=== PATIENT | female | born 1955 | race African-American/Black ===

== ENCOUNTER 2022-03-12 12:22 | Inpatient (IN) | payer OTHER, MEDICAID ==
[~2022-03-12] VITALS: Ht 170.2 cm; Wt 84.8 kg
[2022-03-12] MEDS ORDERED: SODIUM CHLORIDE 0.9% 500 ML IV ONE (13:15)
[2022-03-12 14:35] LABS: BASOPHILS % 0.4 % (0.0-2.0); EOSINOPHILS % 0.2 % (0.0-5.0); HEMATOCRIT. 43.3 % (36.0-48.0); HEMOGLOBIN. 14.5 g/dL (12.0-16.0); LYMPHOCYTES % 10.4 % (20.0-50.0); MEAN CORPUSCULAR HEMOGLOBIN 34.5 pg (28.0-32.0); MEAN CORPUSCULAR VOLUME 102.8 fL (81.0-99.0); MEAN PLATELET VOLUME 7.8 fl (7.4-10.4); MONOCYTES % 3.6 % (2.0-8.0); NEUTROPHILS % 85.4 % (40.0-76.0); PLATELET 632 x1000/uL (130-400); RED BLOOD CELL COUNT 4.21 mill/uL (4.2-5.4); RED CELL DISTRIBUTION WIDTH 14.9 % (11.6-14.6)
[2022-03-12 14:42] LABS: CHLORIDE 103 mEq/L (98-107)
[2022-03-12] MEDS ORDERED: AZITHROMYCIN 500MG/250ML 250 ML IV ONE (14:45)
[2022-03-12] MEDS ORDERED: CEFTRIAXONE 1 G PREMIX 50 ML IV ONE (14:45)
[2022-03-12 14:54] LABS: ETHANOL BLOOD < 10 mg/dL
[2022-03-12] MEDS ORDERED: POTASSIUM CHLORIDE 20MEQ/PACKET PO NR (15:30)
[2022-03-12] MEDS ORDERED: NITROGLYCERIN 0.4MG TABLET SL SL PRN (16:00)
[2022-03-12] MEDS ORDERED: ZOLPIDEM TARTRATE 5MG TABLET PO PRN (16:00)
[2022-03-12] MEDS ORDERED: ONDANSETRON HCL 4MG/2ML INJ IV PRN (16:00)
[2022-03-12] MEDS ORDERED: ACETAMINOPHEN 325MG TABLET PO PRN ×2 (16:00)
[2022-03-12] MEDS ORDERED: MAGNESIUM/ALUMINUM HYDROXIDE/SIMETHICONE 30ML UDC PO PRN (16:00)
[2022-03-12] MEDS ORDERED: DOCUSATE SODIUM 100MG CAPSULE PO PRN (16:00)
[2022-03-12] MEDS ORDERED: GUAIFENESIN 200MG/10ML SUGAR FREE UDC PO PRN (16:00)
[2022-03-12] MEDS ORDERED: IPRATROPIUM/ALBUTEROL 0.5-3(2.5)MG/3ML NEB NEB PRN (16:00)
[2022-03-12] MEDS ORDERED: CLONIDINE 0.1MG TABLET PO PRN (16:00)
[2022-03-12] MEDS ORDERED: KETOROLAC 15MG/ML VIAL IV PRN (16:00)
[2022-03-12] MEDS ORDERED: CEFTRIAXONE 1 G PREMIX 50 ML IV NR (16:15)
[2022-03-12] MEDS ORDERED: AZITHROMYCIN 500MG/250ML 250 ML IV NR (16:15)
[2022-03-12 16:37] LABS: T4 FREE 1.11 ng/dL (0.76-1.46)
[2022-03-12 17:05] LABS: VITAMIN B12 SERUM 619 pg/mL (211-911)
[2022-03-12] MEDS ORDERED: FOLIC ACID 1 MG, THIAMINE HCL 100 MG, MVI, ADULT NO.1 10 ML in DEXTROSE 5% WATER 1,000 ML IV ONE ×4 (19:30)
[2022-03-12 20:00] VITALS: BP 142/76
[2022-03-12] MEDS ORDERED: ENOXAPARIN 40MG/0.4ML SYR SUBCUT SCH (21:00)
[2022-03-12 21:30] LABS: CREATINE KINASE MB FRACTION 1.3 ng/mL (0.5-3.6)
[2022-03-12] MEDS: FAMOTIDINE 20MG TABLET PO SCH (23:00)
[2022-03-12] MEDS: ASCORBIC ACID 500 MG TABLET PO SCH (23:00)
[2022-03-13] VITALS (8 sets, daily range): BP systolic 120–143; BP diastolic 71–86
[2022-03-13 00:29] LABS: CLARITY URINE CLEAR (CLEAR); COLOR URINE DARK YELLOW (YELLOW); KETONES URINE 2+ (NEGATIVE); LEUKOCYTE ESTERASE URINE TRACE (NEGATIVE); NITRITE URINE NEGATIVE (NEGATIVE); OCCULT BLOOD URINE NEGATIVE (NEGATIVE); PROTEIN URINE 1+ (NEGATIVE); SPECIFIC GRAVITY URINE 1.033 (1.005-1.030); UROBILINOGEN URINE >8.0 E.U./dL (0.2-1.0)
[2022-03-13 00:56] LABS: *AMPHETAMINES SCREEN URINE NEGATIVE (NEGATIVE); *BARBITURATES SCREEN URINE NEGATIVE (NEGATIVE); *BENZODIAZEPINES SCREEN URINE NEGATIVE (NEGATIVE); *COCAINE SCREEN URINE NEGATIVE (NEGATIVE); CANNABINOID URINE SCREEN NEGATIVE (NEGATIVE); METHADONE URINE SCREEN NEGATIVE (NEGATIVE); OPIATES URINE SCREEN NEGATIVE (NEGATIVE); PHENCYCLIDINE URINE SCREEN NEGATIVE (NEGATIVE)
[2022-03-13 06:57] LABS: BASOPHILS % 0.5 % (0.0-2.0); EOSINOPHILS % 0.8 % (0.0-5.0); HEMOGLOBIN. 13.3 g/dL (12.0-16.0); MEAN CORPUSCULAR HEMOGLOBIN 34.4 pg (28.0-32.0); MONOCYTES % 3.1 % (2.0-8.0); NEUTROPHILS % 82.6 % (40.0-76.0); PLATELET 610 x1000/uL (130-400); RED BLOOD CELL COUNT 3.88 mill/uL (4.2-5.4); RED CELL DISTRIBUTION WIDTH 14.9 % (11.6-14.6)
[2022-03-13 07:08] LABS: CREATINE KINASE MB FRACTION 1.1 ng/mL (0.5-3.6)
[2022-03-13] MEDS: GUAIFENESIN/DM 600MG/30MG ER TAB 12HR PO SCH ×2 (07:26→15:23)
[2022-03-13] MEDS: ZINC SULFATE 220 MG ( 50 ) CAPSULE PO SCH (08:53)
[2022-03-13] MEDS: ASCORBIC ACID 500 MG TABLET PO SCH ×2 (08:53→20:46)
[2022-03-13] MEDS: AMLODIPINE 5MG TABLET PO SCH (08:53)
[2022-03-13] MEDS: FAMOTIDINE 20MG TABLET PO SCH ×2 (08:53→20:46)
[2022-03-13] MEDS ORDERED: ASPIRIN 325MG EC TABLET PO SCH (09:00)
[2022-03-13] MEDS ORDERED: CEFTRIAXONE 1 G PREMIX 50 ML IV SCH (09:00)
[2022-03-13] MEDS: ASPIRIN 325MG EC TABLET PO SCH (09:15)
[2022-03-13] MEDS ORDERED: FUROSEMIDE 40MG/4ML VIAL IVP SCH (09:15)
[2022-03-13] MEDS: SPIRONOLACTONE 25MG TABLET PO SCH (09:20)
[2022-03-13] MEDS ORDERED: SODIUM CHLORIDE 3% FOR INH 4ML UD NEB INH NR (11:00)
[2022-03-13 11:24] LABS: CHLORIDE 106 mEq/L (98-107)
[2022-03-13] MEDS ORDERED: POTASSIUM CHLORIDE 20MEQ TABLET SR PO SCH (13:15)
[2022-03-13] MEDS ORDERED: POTASSIUM CHLORIDE 20MEQ/PACKET PO SCH (13:15)
[2022-03-13 13:42] LABS: PHOSPHORUS 2.2 mg/dL (2.5-4.9)
[2022-03-13] MEDS: IPRATROPIUM/ALBUTEROL 0.5-3(2.5)MG/3ML NEB HHN SCH ×2 (15:42→21:40)
[2022-03-13] MEDS ORDERED: AZITHROMYCIN 500 MG in DEXT 5% WATER 250 ML IV SCH (16:00)
[2022-03-13] MEDS: CEFTRIAXONE 1,000 MG in DEXTROSE 5% WATER 50 ML IV SCH (16:58)
[2022-03-13] MEDS: ATORVASTATIN CALCIUM 40MG TABLET PO SCH (20:46)
[2022-03-13] MEDS: AZITHROMYCIN 500 MG in DEXT 5% WATER 250 ML IV SCH (21:13)
[2022-03-14] VITALS: BP 124/78
[2022-03-14] MEDS: ACETYLCYSTEINE 200MG/ML 20% VIAL 4ML INH SCH ×3 (00:37→14:06)
[2022-03-14] MEDS: GUAIFENESIN/DM 600MG/30MG ER TAB 12HR PO SCH ×2 (03:24→17:03)
[2022-03-14 04:11] VITALS: BP 148/89
[2022-03-14 06:50] LABS: HEMATOCRIT 40.1 % (36.0-48.0); HEMOGLOBIN 13.6 g/dL (12.0-16.0); MEAN CORPUSCULAR HEMOGLOBIN 34.7 pg (28.0-32.0); MEAN CORPUSCULAR VOLUME 102.3 fL (81.0-99.0); PLATELET 627 x1000/uL (130-400); RED BLOOD CELL COUNT 3.92 mill/uL (4.2-5.4); RED CELL DISTRIBUTION WIDTH 14.9 % (11.6-14.6)
[2022-03-14 08:23] VITALS: BP 149/92
[2022-03-14] MEDS: ASCORBIC ACID 500 MG TABLET PO SCH ×2 (08:41→21:36)
[2022-03-14] MEDS: ASPIRIN 325MG EC TABLET PO SCH (08:41)
[2022-03-14] MEDS: FAMOTIDINE 20MG TABLET PO SCH ×2 (08:41→21:36)
[2022-03-14] MEDS: AMLODIPINE 5MG TABLET PO SCH (08:41)
[2022-03-14] MEDS: ZINC SULFATE 220 MG ( 50 ) CAPSULE PO SCH (08:42)
[2022-03-14] MEDS: IPRATROPIUM/ALBUTEROL 0.5-3(2.5)MG/3ML NEB HHN SCH ×3 (08:47→21:15)
[2022-03-14 08:52] LABS: BG BASE EXCESS 7.8 mmol/L (-2.0-2.0); BG CARBOXYHEMOGLOBIN 0.8 % (0.5-1.5); BG DEOXYHEMOGLOBIN 11.5 % (0.0-5.0); BG FRACTION INSPIRED OXYGEN 40; BG HCO3 ACT 32.5 mmol/L (22.0-26.0); BG METHEMOGLOBIN 0.4 % (0.0-1.5); BG OXYGEN SATURATION 88.4 % (92.0-98.5); BG OXYHEMOGLOBIN 87.3 % (94.0-97.0); BG PCO2 45.3 mmHg (35.0-45.0); BG PH 7.474 (7.350-7.450); BG PO2 55.1 mmHg (75.0-100.0); BG SAMPLE SITE RIGHT RADIAL; BG TOTAL HEMOGLOBIN 15.1 g/dL (12.0-18.0); BG VENT MODE NASAL CANNULA
[2022-03-14] MEDS: ASPIRIN 81MG EC TABLET PO SCH (09:21)
[2022-03-14] MEDS: SPIRONOLACTONE 25MG TABLET PO SCH (09:21)
[2022-03-14 11:40] VITALS: BP 147/84
[2022-03-14 13:57] LABS: CHLORIDE 102 mEq/L (98-107)
[2022-03-14 15:44] VITALS: BP 144/77
[2022-03-14] MEDS: CEFTRIAXONE 1,000 MG in DEXTROSE 5% WATER 50 ML IV SCH (17:03)
[2022-03-14] MEDS: AZITHROMYCIN 500 MG in DEXT 5% WATER 250 ML IV SCH (17:03)
[2022-03-14 20:00] VITALS: BP 145/81
[2022-03-14] MEDS: ATORVASTATIN CALCIUM 40MG TABLET PO SCH (21:36)
[2022-03-15] VITALS: BP 126/70
[2022-03-15] MEDS: IPRATROPIUM/ALBUTEROL 0.5-3(2.5)MG/3ML NEB HHN SCH ×3 (01:05→14:04)
[2022-03-15] MEDS: ACETYLCYSTEINE 200MG/ML 20% VIAL 4ML INH SCH ×4 (01:06→14:29)
[2022-03-15] MEDS: GUAIFENESIN/DM 600MG/30MG ER TAB 12HR PO SCH ×2 (03:32→16:18)
[2022-03-15 04:00] VITALS: BP 125/67
[2022-03-15 07:44] VITALS: BP 158/83
[2022-03-15] MEDS: FAMOTIDINE 20MG TABLET PO SCH (08:26)
[2022-03-15] MEDS: ASCORBIC ACID 500 MG TABLET PO SCH (08:26)
[2022-03-15] MEDS: AMLODIPINE 5MG TABLET PO SCH (08:26)
[2022-03-15] MEDS: ASPIRIN 81MG EC TABLET PO SCH (08:27)
[2022-03-15] MEDS: SPIRONOLACTONE 25MG TABLET PO SCH (08:27)
[2022-03-15] MEDS: ZINC SULFATE 220 MG ( 50 ) CAPSULE PO SCH (08:27)
[2022-03-15] MEDS ORDERED: CLOPIDOGREL 75MG TABLET PO SCH (09:00)
[2022-03-15 09:14] LABS: HEMATOCRIT 42.1 % (36.0-48.0); HEMOGLOBIN 14.1 g/dL (12.0-16.0); MEAN CORPUSCULAR HEMOGLOBIN 34.7 pg (28.0-32.0); MEAN CORPUSCULAR VOLUME 103.6 fL (81.0-99.0); PLATELET 624 x1000/uL (130-400); RED BLOOD CELL COUNT 4.06 mill/uL (4.2-5.4); RED CELL DISTRIBUTION WIDTH 14.7 % (11.6-14.6)
[2022-03-15 09:50] LABS: CHLORIDE 98 mEq/L (98-107)
[2022-03-15] MEDS ORDERED: POTASSIUM CHLORIDE 20MEQ TABLET SR PO NR (10:45)
[2022-03-15 12:32] VITALS: BP 141/72
[2022-03-15 15:15] VITALS: BP 112/58
[2022-03-15] MEDS: CEFTRIAXONE 1,000 MG in DEXTROSE 5% WATER 50 ML IV SCH (16:18)
[2022-03-15] MEDS: AZITHROMYCIN 500 MG in DEXT 5% WATER 250 ML IV SCH (17:11)
[2022-03-15] MEDS ORDERED: AZITHROMYCIN 500 MG TABLET PO SCH (18:00)
[2022-03-15 18:36] VITALS: BP 112/58
== END 2022-03-15 20:10 | disposition short-term general hospital (02) | DRG 64 ==
LOC: ER 12:22 → 8WST 15:30
PROVIDERS: ADMIT Internal Medicine; ATTEND Internal Medicine
DX: I63.512 Cerebral infarction due to unspecified occlusion or stenosis of left middle cerebral artery (principal); A41.9 Sepsis, unspecified organism; G92.8 Other toxic encephalopathy; I21.A1 Myocardial infarction type 2; J96.01 Acute respiratory failure with hypoxia; J18.9 Pneumonia, unspecified organism; E44.0 Moderate protein-calorie malnutrition; N39.0 Urinary tract infection, site not specified; I50.32 Chronic diastolic (congestive) heart failure; Z20.822 Contact with and (suspected) exposure to COVID-19; E87.6 Hypokalemia; E78.1 Pure hyperglyceridemia; E11.65 Type 2 diabetes mellitus with hyperglycemia; E11.9 Type 2 diabetes mellitus without complications; E83.41 Hypermagnesemia; I11.0 Hypertensive heart disease with heart failure; R74.02 Elevation of levels of lactic acid dehydrogenase [LDH]; D75.839 Thrombocytosis, unspecified; R53.1 Weakness; F10.10 Alcohol abuse, uncomplicated; F14.10 Cocaine abuse, uncomplicated; Z85.3 Personal history of malignant neoplasm of breast; Z68.29 Body mass index [BMI] 29.0-29.9, adult
CPT/HCPCS: 36415; 36600; 70551; 71045; 71250; 80048; 80053; 80061; 80305; 80320; 81003; 82375; 82550; 82553; 82607; 82746; 82805; 83036; 83540; 83550; 83615; 83735; 83880; 84100; 84145; 84439; 84443; 84484; 85025; 85027; 87426; 93005; 93306; 93880; 93970; 94640; 97162; 97535; 99285; J0456; J0696; J1650; J1940; J3411; J3490; J7040; J7060; J7070; J7608; G0480